=== PATIENT | female | born 1965 | race Two or more races ===

== ENCOUNTER 2024-09-12 15:42 | Emergency (ER) | payer OTHER ==
[~2024-09-12] VITALS: Ht 157.5 cm; Wt 48.1 kg
[2024-09-12] MEDS ORDERED: FAMOtidine 10 MG/ML (4ML VIAL) IV ONE (16:30)
[2024-09-12] MEDS ORDERED: INSULIN REGULAR, HUMAN 1,000 UNIT/10 ML UNITS IV ONE ×2 (16:30→19:30)
[2024-09-12] MEDS ORDERED: 0.9 % SODIUM CHLORIDE 1,000 ML IV ONE (16:30)
[2024-09-12] MEDS ORDERED: MORPHINE SULFATE 2 MG/ML SYRINGE IV ONE (16:30)
[2024-09-12] MEDS ORDERED: FAMOTIDINE/PF 20 MG/2 ML VIAL ONE (16:55)
[2024-09-12 18:10] LABS: HEMATOCRIT 35.8 % (36.0-45.00); HEMOGLOBIN 11.6 g/dL (12.0-15.00); MEAN CELL VOLUME 81.6 fL (80.00-100.00); MEAN CORPUSCULAR HEMOGLOBIN 26.4 pg (27.00-32.0); MEAN CORPUSCULAR HGB CONC 32.4 g/dl (32.0-36.0); PLATELET COUNT 292 K/uL (150-450); RED BLOOD COUNT 4.38 M/uL (4.00-6.00)
[2024-09-12 18:13] LABS: RED CELL DISTRIBUTION WIDTH 17.3 % (11.5-14.5)
[2024-09-12 18:32] LABS: INR < 0.93; PARTIAL THROMBOPLASTIN TIME 23.6 SECONDS (22.0-34.0)
[2024-09-12 18:37] LABS: ALBUMIN 3.7 gm/dL (3.4-5.0); BILIRUBIN TOTAL 0.38 mg/dL (0.3-1.2); CALCIUM 8.6 mg/dL (8.5-10.1); CREATININE SERUM 0.6 mg/dL (0.55-1.02); GFR 102.32; GLOBULINA 3.1 G/DL (2.4-3.5); POTASSIUM 4.35 mEq/L (3.5-5.1); TOTAL PROTEIN 6.8 gm/dL (6.4-8.2)
[2024-09-12] MEDS ORDERED: INSULIN GLARGINE,HUM.REC.ANLOG 1,000 UNITS/10 ML UNITS SUBCUTANEO ONE ×2 (19:27→19:30)
[2024-09-12] MEDS ORDERED: NORFLEX100MG PO (21:49)
[2024-09-12] MEDS ORDERED: KETO10TA2 PO (21:49)
== END 2024-09-12 23:48 | disposition home or self-care (01) ==
LOC: ER 15:42
PROVIDERS: General Practice
DX: S80.01XA Contusion of right knee, initial encounter (principal); W19.XXXA Unspecified fall, initial encounter; Y93.89 Activity, other specified; Y92.89 Other specified places as the place of occurrence of the external cause; Y99.9 Unspecified external cause status; Z88.0 Allergy status to penicillin; E11.9 Type 2 diabetes mellitus without complications